=== PATIENT | female | born 1995 | race Caucasian/White ===

== ENCOUNTER 2024-02-19 14:01 | Outpatient (CLI) | payer OTHER, SELFPAY ==
--- NOTE | 2024-02-19 14:00 | CRLHL7_ITS ---
For Patients: As a result of the Century Cures Act, medical imaging exams and procedure reports are released immediately into your electronic medical record. You may view this report before your referring provider. If you have questions, please contact your health care provider. INDICATION: Check viability and dates TECHNIQUE: Transabdominal and transvaginal scanning was performed. Transvaginal scanning was performed to better evaluate the IUP and adnexa. Ovarian blood flow was evaluated with color-flow and pulsed Doppler. COMPARISON: None FINDINGS: There is a living IUP with gestational age of 8 weeks 3 days by LMP and 8 weeks 4 days by today`s crown-rump length. EDC based on today`s crown-rump length is 09/26/2024. The embryonic heart rate is measured at 180 beats per minute. The placenta is not yet formed. A 2.1 x 1.7 x 1.1 cm subchorionic hemorrhage is noted. The ovaries are normal in size and shape. The right ovary measures 3.1 x 2.7 x 2.2 cm and the left 3.9 x 2.8 x 1.8 cm. Ovarian blood flow is demonstrated with color-flow and pulsed Doppler. No adnexal mass or free fluid is apparent. IMPRESSION: 1. Living IUP with gestational age of 8 weeks 3 days by LMP and 8 weeks 4 days by today`s crown-rump length. EDC based on today`s crown-rump length is 09/26/2024. 2. 2.1 x 1.7 x 1.1 cm subchorionic hemorrhage. Dictated by Tayo Joseph MD @ 02/22/2024 8:07:29 AM (Electronically Signed)
== END 2024-02-19 14:02 | disposition home or self-care (01) ==
LOC: US 14:01
PROVIDERS: Visit Provider Midwife
DX: Z34.91 Encounter for supervision of normal pregnancy, unspecified, first trimester (principal); O20.9 Hemorrhage in early pregnancy, unspecified; Z3A.08 8 weeks gestation of pregnancy
CPT/HCPCS: 76817; 80306; 83021; 84443; 86592; 86703; 86704; 86706; 86762; 86787; 86803; 86850; 86900; 86901; 87086; 87340; 87491; 87591

== ENCOUNTER 2024-04-14 15:10 | Outpatient (CLI) | payer OTHER, SELFPAY | END 2024-04-14 15:11 | disposition home or self-care (01) | LOC: NFLDREF 15:11 | PROVIDERS: Visit Provider Advanced Practice Midwife | DX: Z34.92 Encounter for supervision of normal pregnancy, unspecified, second trimester (principal); Z3A.16 16 weeks gestation of pregnancy | CPT/HCPCS: 81511 ==